=== PATIENT | female | born 1990 | race Hispanic/Latino ===

== ENCOUNTER 2017-10-02 22:43 | Emergency (ER) | payer OTHER ==
[2017-10-02 23:28] LABS: Bilirubin Negative (Negative); Blood, Urine Negative (Negative); Glucose, Urine (Dipstick) Negative (Negative); Ketone, Urine > or equal to 80 mg/dL (Negative); Nitrite Negative (Negative); Protein, Urine (Dipstick) Negative (Neg-Trace); Urobilinogen 0.2 mg/dL (0.2-1.0)
[2017-10-02 23:30] LABS: Bacteria/HPF 1+ HPF (None Seen); Hyaline Casts/LPF 7-10 HYALINE CAST LPF (0-3 Hyaline)
[2017-10-02 23:43] LABS: #Eosinphils 0.1 thou/uL (0.0-0.7); #Lymphocytes 2.4 thou/uL (1.20-3.40); #Monocytes 0.3 thou/uL (0.11-0.59); #Neutrophils 3.4 thou/uL (1.40-6.50); %Basophils 0.6 % (0.0-1.0); %Eosinophils 1.2 % (0.0-10.0); %Lymphocytes 38.7 % (21.0-51.0); Hematocrit 37.5 % (36.0-47.0); Mean Platelet Volume 7.4 fL (7.4-10.4); Red Blood Cell (RBC) Count 3.97 mill/uL (4.20-5.40); White Blood Cell (WBC) Count 6.2 thou/uL (4.8-10.8)
[2017-10-02 23:57] LABS: ALT (SGPT) 10 U/L (8-55); AST (SGOT) 15 U/L (5-34); Alkaline Phosphatase 47 U/L (40-150); Anion Gap 13 mmol/L (10-20); BUN (Urea Nitrogen) 8 mg/dL (7.0-18.7); Bilirubin, Total 0.4 mg/dL (0.2-1.2); Calc. Creatinine Clearance 0 mL/min (70-130); Calcium 9.7 mg/dL (7.8-10.44); Carbon Dioxide 21 mmol/L (22-29); Chloride 105 mmol/L (98-107); Estimated GFR-MDRD Greater than 90; Globulin 3.8 g/dL (2.4-3.5); Lipase 14 U/L (8-78)
[2017-10-03] MEDS ORDERED: Ondansetron ODT 4 MG TAB ONE (02:00)
== END 2017-10-03 03:55 | disposition home or self-care (01) ==
LOC: ERS 22:43
DX: O21.0 Mild hyperemesis gravidarum (principal); O99.89 Other specified diseases and conditions complicating pregnancy, childbirth and the puerperium; R82.71 Bacteriuria; Z87.891 Personal history of nicotine dependence; Z3A.11 11 weeks gestation of pregnancy
CPT/HCPCS: 36415; 80053; 81003; 81015; 83690; 84702; 84703; 85025; 87086; 87480; 87491; 87510; 87591; 87660; 99284; Q0162

== ENCOUNTER 2018-04-12 01:26 | Inpatient (IN) | payer OTHER, SELFPAY ==
[2018-04-12 01:53] VITALS: BMI 25.7
--- NOTE | 2018-04-12 02:38 | PDOC.LDHP ---
Labor and Delivery H&P Chief complaint: contractions HPI: 27 yo at 39.1 by LMP/9wk US here with complaint of contractions since noon on 04/11. Denied loss of fluid, bleeding, or decreased movement. Contractions are q10 at home. Previous was , uncomplicated 6 years ago. This has been complicated by anemia, not requiring transfusion. Apprx 30 minutes after SVE, pt complains of feeling like she has passed some fluid per vagina. Current gestational age (weeks): 39 (39.1) Due date: 04/17/18 Dating criteria: last menstrual period, first trimester ultrasound Grav: 2 Para: 1 OB History Details: Previous Current complications: none Abnormal US findings: No Current medications: pre-dangelo vitamins, iron Social history: none - Physical Exam Vital signs reviewed and normal: yes General: NAD, breathing through contractions Heart: RRR Lungs: CTAB Abdomen: gravid Extremeties: no edema FHT: category 1, variability present, absent or minimal variables [place] contractions every: 8 - Vaginal Exam cm dilated: 2 Effacement: 50% Station: -2 - OB Labs Blood type: O RH: positive Antibody Screen: negative HIV: negative RPR: negative HEPSAg: negative 1 hour GCT: negative GBS: negative Urine drug screen: negative Rubella: immune - Assessment Term , latent labor - Plan -: Will obs in L&D and check for cervical change after 2 hours of monitoring. Due to concern for possible SROM, will order amnisure. If positive will admit for labor, otherwise will determine plan pending cervical change. <Vinay Phillips - Last Filed: 04/12/18 02:36> - Plan Plan: admit to L&D (On recheck, evidence of gross ROM (clear) and cervix changed to 3cm...admit. Pitocin if needed.), informed consent obtained, anesthesia consult for pain management <Jose David Hankins - Last Filed: 04/12/18 02:51> Allergies/Adverse Reactions: Allergies Allergy/AdvReac Type Severity Reaction Status Date / Time No Known Allergies Allergy Verified 04/12/18 01:54
--- NOTE | 2018-04-12 02:38 | PDOC.LDHP ---
Labor and Delivery H&P HPI: Patient here for contractions. Patient first seen by Dr Vinay Phillips. Patient is a 27 yo at 39 weeks 1 day by LMP with contractions. No HAs, no other issues. Good FM. Review of Systems: Complete ROS completed and negative unless in HPI. Current gestational age (weeks): 39 (1 day) Dating criteria: last menstrual period Grav: 2 Para: 1 OB History Details: X1 Current complications: none Abnormal US findings: No Current medications: pre- vitamins, iron Previous surgical history: none Allergies/Adverse Reactions: Allergies Allergy/AdvReac Type Severity Reaction Status Date / Time No Known Allergies Allergy Verified 04/12/18 01:54 Social history: none - Physical Exam Vital signs reviewed and normal: yes General: NAD Heart: RRR Lungs: CTAB Abdomen: gravid Extremeties: no edema FHT: category 1 [place] contractions every: irregular contractions Q8 min or so - Vaginal Exam cm dilated: 2 (After the exam by Alan, patient thought she had SROM. Small amount mucoid dsch noted on bed but no gush of fluid) Effacement: 50% Station: -2 - Assessment Latent labor at term, GBS neg. Unsure if SROM after examination...test in progress. - Plan Plan: observation in L&D (Monitors for now. Amnisure sent off. Pain meds prn)
--- NOTE | 2018-04-12 02:51 | PDOC.LDPN ---
Labor & Delivery Progress Note - Subjective Subjective: comfortable, painful contractions - Objective Vital signs reviewed and normal: yes General: NAD, breathing through contractions Uterine fundus: non tender Dilation: 3 Effacement: 75% Station: -2 FHT: category 1, variability present, absent or minimal variables [place] contractions every: 5-8 Other exam findings: Gross rupture of membranes - Assessment (1) Term Code(s): Z34.80 - ENCOUNTER FOR SUPRVSN OF NORMAL , UNSP TRIMESTER Current Visit: Yes Status: Acute (2) SROM (spontaneous rupture of membranes) Code(s): HLT9551 - Current Visit: Yes Status: Acute Comment: Patient now gross SROM and changed to 3/75/-2. Admit to L&D. Continue to monitor progress. No augmentation indicated at this point. Re evaluate in 2 hours.
[2018-04-12 02:52] LABS: Amnisure Test RUPTURE DETECTED (No Rupture)
[2018-04-12 02:53] LABS: Amnisure Internal Control QC ACCEPTABLE (ACCEPTABLE)
[2018-04-12] MEDS ORDERED: Promethazine HCl 25 MG/ML VIAL IM PRN ×2 (02:53→04:04)
[2018-04-12] MEDS ORDERED: Misoprostol 200 MCG TAB PR PRN (02:53)
[2018-04-12] MEDS ORDERED: Ibuprofen 800 MG TAB PO PRN (02:53)
[2018-04-12] MEDS ORDERED: Ondansetron HCl/PF 4 MG/2 ML Vial IVP PRN ×2 (02:53→04:04)
[2018-04-12] MEDS ORDERED: Lidocaine 1% (PF) 30 ML VIAL SC PRN (02:53)
[2018-04-12] MEDS ORDERED: Diphenoxylate HCl/Atropine Tablet PO PRN (02:53)
[2018-04-12] MEDS ORDERED: HYDROcodone/Acetaminophen 5/325 mg Tablet PO PRN (02:53)
[2018-04-12] MEDS ORDERED: NS / Oxytocin 40 units/1000ml 1,000 ML IV PRN (02:53)
[2018-04-12] MEDS ORDERED: Methylergonovine 0.2 MG/ML VIAL IM PRN (02:53)
[2018-04-12] MEDS ORDERED: Carboprost 250 MCG/ML AMP IM PRN (02:53)
[2018-04-12] MEDS ORDERED: Lactated Ringer's 1,000 ML IV SCH (03:00)
[2018-04-12] MEDS ORDERED: Bupivacaine 0.5% 20 ML, fentaNYL Citrate/PF 400 MCG in Sodium Chloride 0.9% 72 ML EPIDURAL SCH (03:15)
[2018-04-12 03:20] LABS: Hemoglobin 13.7 g/dL (12.0-16.0); Mean Corpuscular HGB CONC 34.9 g/dL (32.0-36.0); Mean Corpuscular Hemoglobin 33.2 pg (27.0-31.0); Mean Corpuscular Volume 95.3 fl (81.0-99.0); Mean Platelet Volume 8.2 fL (7.4-10.4); Platelet Count 226 thou/uL (130-400); RBC Distribution Width 11.8 % (11.5-14.5); Red Blood Cell (RBC) Count 4.13 mill/uL (4.20-5.40)
[2018-04-12] MEDS ORDERED: ePHEDrine/0.9% NaCl/PF SYRINGE 50 mg/10 ml SLOW IVP PRN (04:04)
[2018-04-12] MEDS ORDERED: Acetaminophen 325 MG TAB PO PRN (04:04)
[2018-04-12] MEDS ORDERED: Hydrocerin (Eucerin) Cream 120 gm Jar TOP PRN (04:04)
[2018-04-12] MEDS ORDERED: Naloxone HCl 0.4 mg/ml Vial IVP PRN ×2 (04:04)
[2018-04-12] MEDS ORDERED: Lactated Ringer's 500 ML IV PRN (04:04)
[2018-04-12] MEDS ORDERED: diphenhydrAMINE 50 MG/ML VIAL IVP PRN (04:04)
[2018-04-12] MEDS ORDERED: Fentanyl 4mcg/Marcaine 0.1% Cassette 100 ML EPIDURAL SCH (04:15)
[2018-04-12] MEDS ORDERED: Communication Order-Pharmacy FS SCH (04:15)
[2018-04-12 04:18] LABS: HBSAg Index 0.19 S/CO (0-0.99); Hep B Surf Ag Non-Reactive S/CO (NonReactive)
[2018-04-12 05:39] LABS: Syphilis Antibody Nonreactive (Nonreactive); Syphilis Antibody Index 0.05 S/CO (<1.00 Non-Reactive)
--- NOTE | 2018-04-12 06:44 | PDOC.LDPN ---
Labor & Delivery Progress Note - Subjective Subjective: comfortable - Objective Vital signs reviewed and normal: yes General: resting Uterine fundus: non tender Dilation: 10 Effacement: 100% Station: 2+ FHT: category 1 (120/mod/+accel/no decel) [place] contractions every: 3-4 min Plan: continue plan of care -: Anticipate soon
--- NOTE | 2018-04-12 07:35 | PDOC.OPDEL ---
OB Operative/Delivery Note Delivery Dr/Surgeon: Satish/Cr Assist: Hankins as staff Pre-Delivery Diagnosis: active labor, other ( at term) Procedure/Post Delivery Dx: spontaneous vaginal delivery Weeks gestation: 39 Anesthesia: epidural - Findings A - 1 min: 8 - 5 min: 9 - Additional Findings/Plan Placenta delivered: spontaneous (Munson mechanism, within 5 minutes of delivery ) Estimated blood loss: 300 (brief ARIS atomy massaged. Ruiz out just prior to delivery. Cytotec CT Compilations/Other Findings: Baby vigorous Delayed cord clamping x 1 minute Second degree ML lac RX with 2-0 vicryl per Satish. Brief ARIS atomy RX with massage and cytotec 800mcg CT prophylactically. EBL 300ml Placenta delivered...munson mechanism Post delivery plan: routine recovery
[2018-04-12] MEDS ORDERED: Acetaminophen/Codeine 30-300mg Tablet PO PRN ×2 (10:13)
[2018-04-12] MEDS ORDERED: Ferrous Sulfate 325 MG TAB PO SCH ×2 (10:13→11:00)
[2018-04-12] MEDS ORDERED: Preparation H Ointment 28 GM TUBE PR PRN (10:13)
[2018-04-12] MEDS ORDERED: NS / Oxytocin 40 units/1000ml 1,000 ML IV SCH (10:13)
[2018-04-12] MEDS ORDERED: Adacel (T-DAP) 0.5 ML VIAL IM ONE (10:13)
[2018-04-12] MEDS ORDERED: Docusate Calcium (SURFAK) 240 MG CAP PO SCH ×2 (10:13→11:00)
[2018-04-12] MEDS ORDERED: Benzocaine/Menthol 20-0.5% 60 ML CAN TOP PRN (10:13)
[2018-04-12] MEDS ORDERED: Milk Of Magnesia 30 ML UDCUP PO PRN (10:13)
[2018-04-12] MEDS ORDERED: Lanolin Ointment 7 GM TUBE TOP PRN (10:13)
[2018-04-12] MEDS ORDERED: Bisacodyl 10 MG SUPP PR PRN (10:13)
[2018-04-12] MEDS: Ibuprofen 800 MG TAB PO SCH ×2 (11:54→20:48)
--- NOTE | 2018-04-12 12:54 | DN-2 ---
DELIVERING PHYSICIAN: Carolyn Covarrubias M.D. ATTENDING PHYSICIAN: Jose David Hankins M.D. PROCEDURE: Spontaneous vaginal delivery. ANESTHESIA: Epidural. ESTIMATED BLOOD LOSS: 300 mL visualized. PREOPERATIVE DIAGNOSIS: Term intrauterine in labor. POSTOPERATIVE DIAGNOSES: 1. Term intrauterine , delivered. 2. Second-degree laceration, status post repair. INDICATIONS: A 27-year-old female, G2, P1-0-0-1 presented in active labor. DELIVERY NOTE: This is a 27-year-old female, G2, P1-0-0-1, now P2-0-0-2 at 39 and 2 weeks, who delivered a viable female at 07:18. Following uneventful antepartum course, a vigorous female was delivered over a midline second-degree laceration in the right occipital anterior position. Anterior shoulder and the remainder of body delivered. No nuchal cord. The head was held down and mouth and nares were bulb suctioned. Cord was clamped and cut after 1 minute of delayed cord clamping and cord blood was collected. Placenta delivered in it the Cantrell position with a 3-vessel cord noted. Fundal massage was performed and the fundus was slightly boggy at first, but improved with massage. The cervix and vagina were inspected and a second- degree midline perineal laceration was noted and repaired with 3-0 Vicryl suture followed by 4-0 Vicryl suture in the usual fashion with good approximation and hemostasis. went to nursery in good condition for routine care. Apgars were 8 and 9 at 1 and 5 minutes respectively. The patient tolerated delivery well and went to after routine recovery and care. [facility]
[2018-04-12] MEDS ORDERED: Bupivacaine HCl 0.5%/Epinephrine 1:200,000/PF 30 ml Vial ONE (17:03)
[2018-04-12] MEDS: Ferrous Sulfate 325 MG TAB PO SCH (18:45)
[2018-04-12] MEDS: Docusate Calcium (SURFAK) 240 MG CAP PO SCH (20:48)
[2018-04-12 23:44] VITALS: BP 116/58
[2018-04-13 03:53] VITALS: TEMP 97.9
[2018-04-13] MEDS ORDERED: diphenhydrAMINE 25 MG CAP PO SCH (04:00)
[2018-04-13 05:43] LABS: Hemoglobin 10.9 g/dL (12.0-16.0)
[2018-04-13] MEDS: Ibuprofen 800 MG TAB PO SCH ×2 (06:05→13:15)
--- NOTE | 2018-04-13 06:46 | PDOC.PP ---
Post Progress Note Post Day #: 1 Subjective: Complaining of itching this morning which she has had on and off throughout . She states it is all over her body, face, hands, back, feet and did not have any relief with Benadryl. She is also concerned baby is not feeding well. PO intake tolerated: yes Flatus: yes Ambulation: yes Vital Signs (12 hours) Temp Pulse Resp BP 04/13/18 03:45 97.9 F 51 L 16 04/12/18 23:39 98.5 F 59 L 16 116/58 L 04/12/18 20:30 97.5 F L 61 16 109/53 L 04/12/18 20:00 97.5 F L Weight Weight 65.771 kg - Physical Examination General: NAD Cardiovascular: no m/r/g, RRR Respiratory: clear to auscultation bilaterally, non-labored breathing Abdominal: + bowel sounds, lochia (minimal), no distention, appropriately TTP Fundus firm & at: below umbilicus Neurological: no gross focal deficits Psychiatric: A&Ox3, normal affect Result Diagrams: 04/13/18 05:10 Additional Labs: Post Labs Blood Type O POSITIVE 04/12/18 03:00 Hep Bs Antigen Non-Reactive S/CO (NonReactive) 04/12/18 03:00 (1) Vaginal delivery Code(s): O80 - ENCOUNTER FOR FULL-TERM UNCOMPLICATED DELIVERY Status: Acute - Assessment/Plan 1. PPD #1 from - Meeting all pp milestones - Pain well-controlled - Possible discharge later today pending symptoms and feeding 2. Itching - Cholestasis of eval was done during - Minimal relief with benadryl - Can try topical steroids avoiding face/breasts and avoiding infant skin - Will discuss further labs vs. treatment alternatives
[2018-04-13] MEDS: Ferrous Sulfate 325 MG TAB PO SCH (08:13)
--- NOTE | 2018-04-13 08:17 | DIS ---
DATE OF ADMISSION: 04/12/2018 DATE OF DISCHARGE: 04/13/2018 ADMITTING DIAGNOSIS: Labor at term. DISCHARGE DIAGNOSIS: Labor at term. PROCEDURE: Term spontaneous vaginal delivery. CONSULTATIONS: None. HOSPITAL COURSE: Patient is a 27-year-old G2, now P2 female who presented to Labor and Delivery with contractions. The patient was admitted for spontaneous rupture of membranes and labor. Her admissi on course was proceeded to an uncomplicated term spontaneous vaginal delivery and was sent to recover y to for continued postop delivery care. Her care has been uncomplicated. Tod turner on day #1, she reports she is tolerating p.o., voiding on her own, having decreased loc hia and good pain control. PHYSICAL EXAMINATION: VITAL SIGNS: Today, blood pressure is 116/58, temperature 98.5, pulse of 59, respiratory rate of 16. GENERAL: She appears to be in no acute distress. She is alert and oriented, cooperative and pleasan t to interact with. Fundus is firm at the umbilicus. EXTREMITIES: Nontender, nonedematous. DISCHARGE INSTRUCTIONS: She will be discharged to home with follow up in 2 weeks at the [facility]. She will be discharged home on ibuprofen. She has been given instructions to seek medical atte ntion if she experiences fever, increasing pain or bleeding.
[2018-04-13] MEDS: Docusate Calcium (SURFAK) 240 MG CAP PO SCH (08:31)
[2018-04-13] MEDS ORDERED: diphenhydrAMINE 25 MG CAP PO PRN (08:40)
== END 2018-04-13 14:30 | disposition home or self-care (01) | DRG 775 ==
LOC: L&D/OP 01:26 → L&D 02:48 → 3SW 10:30
PROVIDERS: ADMIT Obstetrics & Gynecology; ATTEND Obstetrics & Gynecology
PROC: 10E0XZZ Delivery of Products of Conception, External Approach (ICD-10-PCS; principal; 2018-04-12)
PROC: 0KQM0ZZ Repair Perineum Muscle, Open Approach (ICD-10-PCS; 2018-04-12)
DX: O70.1 Second degree perineal laceration during delivery (principal); Z37.0 Single live birth; O75.89 Other specified complications of labor and delivery; O99.02 Anemia complicating childbirth; Z3A.39 39 weeks gestation of pregnancy
CPT/HCPCS: 36415; 51702; 84112; 85014; 85018; 85027; 86780; 86850; 86900; 86901; 87340; 99285; J0670; J3010; J3490; J7050